=== PATIENT | female | born 1935 | race Caucasian/White ===

== ENCOUNTER 2016-11-26 10:43 | Emergency (ER) | payer OTHER, MEDICARE ==
[~2016-11-26] VITALS: Ht 154.9 cm; Wt 54.0 kg
[~2016-11-26 10:43] MED LIST: BACTRIM DS TAB1 EAC1 ORAL; BENAZEPRIL HCL20 MG; DEPAKOTE500 MG PO; DIPHENOXYLATE-1 EACH; DIVALPROEX SOD250 MG; FAMOTIDINE20 MG; HYDROCODON-ACE1 EA13; KEFLEX500 MG ORAL; SULFAMETHOXAZO1 EAC2
[2016-11-26 11:16] VITALS: BP 160/92
--- NOTE | 2016-11-26 12:26 | Emergency Room Report ---
History of Present Illness General Chief Complaint: Upper Extremity Injury Source: Patient Present Illness HPI This patient states that she was going down some steps to get the mail and she tripped and fell forward. She states that she broke her fall with her right hand. She states that she has pain in her middle finger primarily. She has no other injuries or complaints. Allergies: Coded Allergies: No Known Allergies (Verified , 02/12/08) Patient History Past Medical History: see triage record, HTN, seizures Social History: Denies: alcohol use, drug use, smoking Reviewed Nursing Documentation: PMH: Agreed, PSxH: Agreed Nursing Documentation-PMH Hx Cardiac Problems: No - HARD OF HEARING Hx Hypertension: Yes Hx Seizures: Yes Review of Systems All Other Systems: negative except mentioned in HPI Physical Exam Vital Signs Date Time Temp Pulse Resp B/P Pulse Ox O2 Delivery O2 Flow Rate FiO2 11/26/16 10:58 98.2 80 16 160/92 97 Room Air Sp02 EP Interpretation: reviewed, normal General Appearance: no apparent distress, alert, GCS 15, non-toxic Head: normocephalic, atraumatic Eyes: bilateral eye PERRL, bilateral eye normal inspection ENT: hearing grossly normal, normal pharynx, no angioedema, normal voice Neck: full range of motion, supple/symm/no masses Respiratory: chest non-tender, lungs clear, normal breath sounds, speaking full sentences Cardiovascular #1: regular rate, rhythm, no edema Gastrointestinal: normal bowel sounds, non tender, soft, non-distended, no guarding, no rebound Rectal: deferred Musculoskeletal: back normal, gait/station normal, normal range of motion, other - Ecchymosis over R. posterior hand. Swollen R. middle finger with ecchymosis and TTP throughout. No other bony tenderness. Neurologic: alert, oriented x3, responsive, motor strength/tone normal, sensory intact, speech normal Psychiatric: judgement/insight normal, memory normal, mood/affect normal, no suicidal/homicidal ideation Skin: no rash, warm/dry, well hydrated, other - See MSK exam Medical Decision Making Diagnostic Impression: Primary Impression: Finger fracture, right ER Course This patient has a nondisplaced fracture of her middle phalanx. The patient has a chronic deformity secondary to arthritis. The patient was splinted as an extension as possible. The patient has a chronic flexion deformity here. She is also instructed to followup closely with with orthopedics. The patient was given return precautions and followup instructions. Other X-Ray Diagnostic Results X-Ray ordered: R. Hand, R. middle finger # of Views/Limited Vs Complete: Complete Interpretation: no dislocation, other Indication: Pain Impression: Other - Non-displaced middle phalanx fx. Date Electronically Signed: Nov 26, 2016 Time Electronically Signed: 13:44 Interpreting ER Physician: Sallie Last Vital Signs Date Time Temp Pulse Resp B/P Pulse Ox O2 Delivery O2 Flow Rate FiO2 11/26/16 11:16 98.2 16 160/92 97 Room Air 11/26/16 10:58 80 Disposition: HOME, SELF-CARE Condition: Improved Referrals: [facility],REFERRING (PCP) Patient Instructions: Finger Fracture, [id number] MITZY CHANCE D.O. Nov 26, 2016 12:26
[2016-11-26 13:30] VITALS: BP 158/86
[2016-11-26 13:45] VITALS: BP 158/86
--- NOTE | 2016-11-26 13:58 | Diagnostic Imaging Report ---
Indications: Right hand/third finger trauma, pain and swelling Technique: 3 views right hand, 3 views right third finger. Findings: Comparison: None Soft tissues of the third digit are diffusely swollen. There is a longitudinal nondisplaced fracture of the third middle phalanx extending from the proximal to distal articular surfaces. No additional fracture, dislocation, joint space widening , surrounding soft tissue foreign body/gas, or other acute changes are identified. Bones are diffusely demineralized. Multiple interphalangeal joints, first carpometacarpal joint, radiocarpal joint narrowed with marginal osteophyte formation. Chronic appearing contour deformity fifth metacarpal diaphysis. IMPRESSION: Fracture third middle phalanx as described, acute No other evidence of acute injury Old, healed fracture fifth metacarpal Multifocal osteoarthritis Osteopenia .
== END 2016-11-26 13:45 | disposition home or self-care (01) ==
LOC: EMR 11:31
DX: S62.622A Displaced fracture of middle phalanx of right middle finger, initial encounter for closed fracture (principal); W10.8XXA Fall (on) (from) other stairs and steps, initial encounter; Y92.89 Other specified places as the place of occurrence of the external cause; I10 Essential (primary) hypertension; H91.90 Unspecified hearing loss, unspecified ear; M85.841 Other specified disorders of bone density and structure, right hand; M19.041 Primary osteoarthritis, right hand
CPT/HCPCS: 99283

== ENCOUNTER 2017-01-10 10:03 | Emergency (ER) | payer OTHER, MEDICARE ==
[~2017-01-10] VITALS: Ht 160 cm; Wt 49.9 kg
[2017-01-10 10:15] VITALS: BP 186/84
--- NOTE | 2017-01-10 10:55 | Diagnostic Imaging Report ---
CT Brain without Intravenous Contrast INDICATION: Fall, seizure, head trauma. COMPARISON: 07/12/13. TECHNIQUE: Serial axial images were obtained from the the skull base through the vertex without intravenous contrast. Coronal reformats were obtained. Dose Estimate: Total DLP 1340 mGycm CTDIvol 70 mGy FINDINGS: Scattered periventricular and subcortical white matter hypodensities are nonspecific but may reflect the sequela of chronic microangiopathy. There is no evidence of acute intracranial hemorrhage or territorial infarct. The cortical sulci, ventricles and extra-axial CSF spaces appear mildly enlarged. There is no space occupying lesion, mass effect or midline shift. The visualized paranasal sinuses and mastoid air cells are clear. The osseous structures are unremarkable. IMPRESSION: 1. No acute intracranial hemorrhage, mass effect or midline shift. 2. Mild cerebral parenchymal volume loss. Scattered white matter hypodensities are nonspecific but may reflect the sequela of chronic microangiopathy.
[2017-01-10 11:55] LABS: APPEARANCE,URINE CLEAR; KETONES,URINE NEGATIVE (NEGATIVE); LEUKOCYTE ESTERASE ,URINE 1+ (NEGATIVE); NITRITE,URINE NEGATIVE (NEGATIVE); PH,URINE 6.5 (4.5-8.0); PROTEIN,URINE NEGATIVE (NEGATIVE); UROBILINOGEN,URINE NORMAL MG/DL (0.0-1.0)
[2017-01-10 11:56] LABS: MEAN CORPUSCULAR HEMOGLOBIN 33.1 PG (27.0-31.0); MEAN CORPUSCULAR HGB CONC 32.1 G/DL (32.0-36.0); MEAN CORPUSCULAR VOLUME 103 FL (80-99); MEAN PLATELET VOLUME 7.9 FL (6.5-10.1); PLATELET COUNT 82 K/UL (150-450); RED CELL DISTRIBUTION WIDTH 12.2 % (11.6-14.8); WHITE BLOOD COUNT 3.5 K/UL (4.8-10.8)
[2017-01-10 12:06] LABS: BACTERIA,URINE FEW /HPF; RBC,URINE 0-2 /HPF (0 - 2); SQUAMOUS EPITHELIAL CELL,UR FEW /LPF (NONE/OCC)
[2017-01-10 12:07] LABS: TROPONIN I < 0.30 ng/mL (<=0.30)
[2017-01-10 12:09] LABS: ACETAMINOPHEN < 10 ug/mL (10-30); ALANINE AMINOTRANSFERASE 10 U/L (3-33); ALBUMIN/GLOBULIN RATIO 1.4 (1.0-2.7); ALCOHOL < 10 mg/dL; ANION GAP 10 (5-15); ASPARTATE AMINO TRANSFERASE 25 U/L (5-40); CALCIUM 10.2 mg/dL (8.6-10.2); CARBON DIOXIDE 24 mEQ/L (20-30); CHLORIDE 104 mEQ/L (98-107); CREATININE 1.7 mg/dL (0.5-0.9); HEMOLYSIS 4; POTASSIUM 5.9 mEQ/L (3.4-4.9); SODIUM 138 mEQ/L (135-145); TOTAL PROTEIN 7.2 g/dL (6.6-8.7); VALPROIC ACID 60 ug/mL (50-100)
[2017-01-10 12:26] LABS: CKMB 4.5 ng/mL (< 3.8)
[2017-01-10] MEDS ORDERED: Sodium Polystyrene Sulfonate 15gm Powder ORAL ONE (12:30)
[2017-01-10] MEDS ORDERED: Calcium Gluconate 1gm/10ml vial IVP ONE (12:30)
[2017-01-10 12:44] VITALS: BP 169/86
[2017-01-10 13:16] LABS: BAND NEUTROPHILS % (MANUAL) 0 % (0-8); BASOPHILS % (MANUAL) 0 % (0-2); EOSINOPHILS % (MANUAL) 3 % (0-3); HYPOCHROMASIA 1+; LYMPHOCYTES % (MANUAL) 20 % (20-45); MACROCYTES 1+; NEUTROPHILS % (MANUAL) 64 % (45-75); PLATELET ESTIMATE DECREASED; PLATELET MORPHOLOGY NORMAL; TOTAL CELLS COUNTED 100
[2017-01-10 14:49] VITALS: BP 147/58
--- NOTE | 2017-01-10 15:46 | Emergency Room Report ---
History of Present Illness General Chief Complaint: Seizure Source: Patient Present Illness HPI 81-year-old female presents to ED status post seizure. Per EMS patient had seizure today while at [employer]. Fell and hit her head. Patient notes history of seizures and takes Depakote. Patient denies any headache, blurry vision. Notes some pain in her right hand, 8/10, throbbing, nonradiating. Denies any chest pain shortness of breath. Denies any fevers chills. No other aggravating relieving factors. Denies any other associated symptoms Allergies: Coded Allergies: No Known Allergies (Verified , 02/12/08) Patient History Past Medical History: HTN Past Surgical History: none Pertinent Family History: none Social History: Denies: alcohol use, drug use, smoking Now: No Immunizations: UTD Reviewed Nursing Documentation: PMH: Agreed, PSxH: Agreed Nursing Documentation-PMH Hx Cardiac Problems: No - HARD OF HEARING Hx Hypertension: Yes Hx Seizures: Yes - [place] Review of Systems All Other Systems: negative except mentioned in HPI Physical Exam Vital Signs Date Time Temp Pulse Resp B/P Pulse Ox O2 Delivery O2 Flow Rate FiO2 01/10/17 10:05 98.2 83 16 186/84 100 Room Air Sp02 EP Interpretation: reviewed, normal General Appearance: no apparent distress, alert, GCS 15, non-toxic Head: normocephalic, atraumatic Eyes: bilateral eye PERRL, bilateral eye normal inspection ENT: hearing grossly normal, normal pharynx, no angioedema, normal voice Neck: full range of motion, supple/symm/no masses Respiratory: chest non-tender, lungs clear, normal breath sounds, speaking full sentences Cardiovascular #1: regular rate, rhythm, no edema Cardiovascular #2: 2+ carotid (R), 2+ carotid (L), 2+ radial (R), 2+ radial (L) , 2+ dorsalis pedis (R), 2+ dorsalis pedis (L) Gastrointestinal: normal bowel sounds, non tender, soft, non-distended, no guarding, no rebound Rectal: deferred Genitourinary: normal inspection, no CVA tenderness Musculoskeletal: back normal, gait/station normal, normal range of motion, non- tender, tender - R hand Neurologic: alert, oriented x3, responsive, motor strength/tone normal, sensory intact, speech normal Psychiatric: judgement/insight normal, memory normal, mood/affect normal, no suicidal/homicidal ideation Reflexes: 3+ bicep (R), 3+ bicep (L), 3+ tricep (R), 3+ tricep (L), 3+ knee (R) , 3+ knee (L) Skin: normal color, no rash, warm/dry, well hydrated Lymphatic: no adenopathy Procedures Splinting Splinting : Consent: Verbal Pre-Made Type: velcro Splint: thumb spica Pre-Proc Neuro Vasc Exam: normal Post-Proc Neuro Vasc Exam: normal Patient Tolerated: Well Complications: None Medical Decision Making Diagnostic Impression: Primary Impression: Seizure Additional Impressions: Hyperkalemia, diminished renal excretion Renal insufficiency Head injury Qualified Codes: S09.90XA - Unspecified injury of head, initial encounter ER Course Hospital Course 81-year-old F presents to ED status post seizure. s/p fall with head injury Differential diagnosis includes- breakthrough seizure, alcohol abuse, noncompliance with medication Clinical course Patient placed on stretcher. Initial history and physical I ordered labs, IV fluids, CT brain Labs- K 5.9, BUN/Cr elevated, leukocytosis noted, hemoglobin/hematocrit stable. depakote level therapeutic EKG - NSR, no acute changes inteerpreted by me R hand xray - ? 5th finger fracture CT Brain ok Hyperkalemia treated with calcium, insulin, D50, Kayexalate. Splint placed on a right wrist because of insurance patient will be transferred i. I feel this is a highly complex case requiring extensive working including EKG/Rhythm strip, Xray/CT/US, Blood/urine lab work, repeat exams while in ED, and administration of strong opiates/narcotics for pain control, admission to hospital or close patient follow up. Diagnosis - seizure, hyperkalemia, renal insufficiency, head injury Transferred in serious condition Labs Test 01/10/17 10:30 01/10/17 11:05 White Blood Count 3.5 K/UL (4.8-10.8) Red Blood Count 3.20 M/UL (4.20-5.40) Hemoglobin 10.6 G/DL (12.0-16.0) Hematocrit 33.0 % (37.0-47.0) Mean Corpuscular Volume 103 FL (80-99) Mean Corpuscular Hemoglobin 33.1 PG (27.0-31.0) Mean Corpuscular Hemoglobin Concent 32.1 G/DL (32.0-36.0) Red Cell Distribution Width 12.2 % (11.6-14.8) Platelet Count 82 K/UL (150-450) Mean Platelet Volume 7.9 FL (6.5-10.1) Neutrophils (%) (Auto) % (45.0-75.0) Lymphocytes (%) (Auto) % (20.0-45.0) Monocytes (%) (Auto) % (1.0-10.0) Eosinophils (%) (Auto) % (0.0-3.0) Basophils (%) (Auto) % (0.0-2.0) Differential Total Cells Counted 100 Neutrophils % (Manual) 64 % (45-75) Lymphocytes % (Manual) 20 % (20-45) Monocytes % (Manual) 13 % (1-10) Eosinophils % (Manual) 3 % (0-3) Basophils % (Manual) 0 % (0-2) Band Neutrophils 0 % (0-8) Platelet Estimate Decreased Platelet Morphology Normal Hypochromasia 1+ Macrocytosis 1+ Sodium Level 138 mEQ/L (135-145) Potassium Level 5.9 mEQ/L (3.4-4.9) Chloride Level 104 mEQ/L (98-107) Carbon Dioxide Level 24 mEQ/L (20-30) Anion Gap 10 (5-15) Blood Urea Nitrogen 36 mg/dL (7-23) Creatinine 1.7 mg/dL (0.5-0.9) Estimat Glomerular Filtration Rate mL/min (>60) Glucose Level 82 mg/dL (74-106) Calcium Level 10.2 mg/dL (8.6-10.2) Total Bilirubin 0.3 mg/dL (0.0-1.2) Aspartate Amino Transf (AST/SGOT) 25 U/L (5-40) Alanine Aminotransferase (ALT/SGPT) 10 U/L (3-33) Alkaline Phosphatase 54 U/L (35-104) Total Creatine Kinase 125 U/L (26-140) Creatine Kinase MB 4.5 ng/mL (< 3.8) Creatine Kinase MB Relative Index 3.6 Troponin I < 0.30 ng/mL (<=0.30) Total Protein 7.2 g/dL (6.6-8.7) Albumin 4.3 g/dL (3.5-5.2) Globulin 2.9 g/dL Albumin/Globulin Ratio 1.4 (1.0-2.7) Salicylates Level < 1 mg/dL (10-30) Acetaminophen Level < 10 ug/mL (10-30) Valproic Acid (Depakene) Level 60 ug/mL (50-100) Serum Alcohol < 10 mg/dL Urine Color Pale yellow Urine Appearance Clear Urine pH 6.5 (4.5-8.0) Urine Specific [place] 1.005 (1.005-1.035) Urine Protein Negative (NEGATIVE) Urine Glucose (UA) Negative (NEGATIVE) Urine Ketones Negative (NEGATIVE) Urine Occult Blood Negative (NEGATIVE) Urine Nitrite Negative (NEGATIVE) Urine Bilirubin Negative (NEGATIVE) Urine Urobilinogen Normal MG/DL (0.0-1.0) Urine Leukocyte Esterase 1+ (NEGATIVE) Urine RBC 0-2 /HPF (0 - 2) Urine WBC 2-4 /HPF (0 - 2) Urine Squamous Epithelial Cells Few /LPF (NONE/OCC) Urine Bacteria Few /HPF (NONE) EKG Diagnostic Results Rate: normal Rhythm: NSR ST Segments: no acute changes ASA given to the pt in ED: No Rhythm Strip Diag. Results EP Interpretation: yes Rhythm: NSR, no PVC's, no ectopy Other X-Ray Diagnostic Results Other X-Ray Diagnostic Results : X-Ray ordered: R hand # of Views/Limited Vs Complete: 3 View Indication: Pain EP Interpretation: Yes Interpretation: no dislocation, no soft tissue swelling, other - arthritis, ? fx 5th finger. Impression: Other - fx 5th finger. ? acuity Interpreting ER Provider: Electronically signed by Gael West MD CT/MRI/US Diagnostic Results CT/MRI/US Diagnostic Results : Imaging Test Ordered: CT head Impression no acute process Last Vital Signs Date Time Temp Pulse Resp B/P Pulse Ox O2 Delivery O2 Flow Rate FiO2 01/10/17 14:49 97.5 81 18 147/58 95 Room Air Status: improved Disposition: XFER SHT-TRM HOSP Condition: Serious Referrals: NON PHYSICIAN (PCP) GAEL WEST M.D. Jan 10, 2017 15:46
--- NOTE | 2017-01-11 10:20 | Diagnostic Imaging Report ---
Indication: PAIN Technique: 3 views right hand Comparison: 11/26/2016 Findings: There is posterior medial soft tissue swelling. There is a fracture of the fifth metacarpal distally, which was not evident previously. A splint is seen over the third digit. No definite fracture of the third digit is evident. There are degenerative changes of the second third fourth and fifth distal interphalangeal joints. Bones are osteoporotic. No other acute fractures are demonstrated. There are degenerative changes of the first carpometacarpal joint. There may be old fracture deformity of the radial styloid. Impression: Positive for acute versus subacute fifth metacarpal fracture, new in any case since 11/26/2016. Via electronic medical record indicates this was recognized by the emergency room physician. Degenerative changes, as described above.
--- NOTE | 2017-01-11 18:12 | Cardiology Report ---
APPROVED REPORT EKG Measurement Heart [id number] [place] [id number] Normal sinus rhythm Normal ECG
== END 2017-01-10 15:40 | disposition short-term general hospital (02) ==
LOC: EDBD 10:03 → EMR 10:20
DX: G40.409 Other generalized epilepsy and epileptic syndromes, not intractable, without status epilepticus (principal); E87.5 Hyperkalemia; N28.9 Disorder of kidney and ureter, unspecified; S62.306A Unspecified fracture of fifth metacarpal bone, right hand, initial encounter for closed fracture; S09.90XA Unspecified injury of head, initial encounter; I10 Essential (primary) hypertension; W18.30XA Fall on same level, unspecified, initial encounter; Y92.22 Religious institution as the place of occurrence of the external cause
CPT/HCPCS: 29260; 36415; 70450; 73130; 80053; 80164; 81003; 82550; 82553; 82962; 84484; 85007; 85025; 93005; 96360; 96374; 96375; 99285; G0480; J0610; J1815; J7040; 80329